=== PATIENT | male | born 1990 | race Caucasian/White ===

== ENCOUNTER → 2020-03-25 | Outpatient (CLI) | payer OTHER ==
--- NOTE | 2020-03-25 11:42 | Diagnostic Imaging Report ---
PROCEDURE: MRI right joint upper extremity without contrast. TECHNIQUE: Multiplanar, multisequence non contrast-enhanced MRI of the right upper extremity was accomplished. INDICATION: Injury shoulder pain There are no prior studies available for comparison. The T2 fat-saturated coronal series does show an area of abnormal signal involving the bursal aspect of the mid and anterior aspect of the rotator cuff. I do suspect that this represents a partial tear. The supraspinatus muscle in this area is not significantly bunched however nor is it retracted. There is hypertrophy of the acromioclavicular joint and this does result in narrowing of the outlet for the supraspinous muscle. The biceps tendon and subscapularis tendon are intact. The labrum is slightly thin posteriorly and may be torn on a degenerative basis. There also appears to be a minute tear of the anterior labrum. On the T1 sagittal images there is diffusely diminished signal throughout the proximal humerus and the posterior aspect of the humeral head. There is a corresponding area of increased signal on T2 fat saturated series and most likely this finding is secondary to bone edema from a nondisplaced fracture. There is also a small joint effusion present. IMPRESSION: 1. There is a tear involving the midportion and anterior insertion of the bursal aspect of the rotator cuff. The supraspinous muscle however is not retracted or bunched. 2. There is hypertrophy of the acromioclavicular joint and this does result in narrowing of the outlet for the supraspinous muscle. 3. The labrum is thinned posteriorly and probably slightly torn on a degenerative basis. There is also a minute tear of the anterior labrum. 4. There is diffuse bone edema involving the humeral head and proximal humerus from a nondisplaced fracture. Dictated by: Dictated on workstation # [id number]
== END ==
LOC: RAD 09:25
PROVIDERS: ATTEND Nurse Practitioner
DX: S43.014D Anterior dislocation of right humerus, subsequent encounter (principal); M75.121 Complete rotator cuff tear or rupture of right shoulder, not specified as traumatic; M89.311 Hypertrophy of bone, right shoulder; X58.XXXD Exposure to other specified factors, subsequent encounter
CPT/HCPCS: 73221

== ENCOUNTER → 2022-05-07 | Outpatient (CLI) | payer BC ==
--- NOTE | 2022-05-07 17:34 | Diagnostic Imaging Report ---
INDICATION: Pain, infection. COMPARISON: None available. TECHNIQUE: Three radiographs of the left foot dated 05/07/2022. FINDINGS: No acute fracture or dislocation. No destructive osseous process. Minimal scattered degenerative changes, greatest involving the first MTP joint. The Lisfranc joint is well maintained. No suspicious radiopaque foreign body. IMPRESSION: No acute osseous abnormality with minimal degenerative changes present. Should there remain concern for underlying osteomyelitis, then follow-up radiographs in 10-14 days would be recommended. Dictated by: Dictated on workstation # [id number]
== END ==
LOC: RAD FS 13:17
PROVIDERS: ATTEND Specialist
DX: L08.9 Local infection of the skin and subcutaneous tissue, unspecified (principal)
CPT/HCPCS: 73630